=== PATIENT | female | born 1995 | race Caucasian/White ===

== ENCOUNTER 2017-03-02 05:58 | Observation (INO) | payer MEDICAID ==
[~2017-03-02] VITALS: Ht 157.5 cm; Wt 90.7 kg
[2017-03-02] MEDS ORDERED: PNV1TABL76 MT (07:07)
[2017-03-03] MEDS ORDERED: BUPIVACAINE HCL/PF 0.25% (2.5MG/ML) 10ML ONE (00:08)
[2017-03-03] MEDS ORDERED: FENTANYL CITRATE/PF 50MCG/ML 2ML VIAL ONE (00:09)
[2017-03-03] MEDS ORDERED: EPHEDRINE SULFATE 50MG/ML VIAL ONE (00:09)
[2017-03-03] MEDS ORDERED: SODIUM CHLORIDE 0.9% 10ML VIAL ONE (00:09)
[2017-03-03] MEDS ORDERED: LIDOCAINE HCL/PF 1% 10 MG/ML 5ML VIAL ONE (00:15)
== END 2017-03-02 08:40 | disposition home or self-care (01) ==
LOC: L&D 05:58
PROVIDERS: ADMIT Obstetrics & Gynecology; ATTEND Obstetrics & Gynecology
DX: O26.893 Other specified pregnancy related conditions, third trimester (principal); R10.30 Lower abdominal pain, unspecified; O48.0 Post-term pregnancy; Z3A.40 40 weeks gestation of pregnancy
CPT/HCPCS: 99281; A4216; G0378; J0171; J3010; J3490

== ENCOUNTER 2017-03-02 20:08 | Inpatient (IN) | payer MEDICAID ==
[~2017-03-02] VITALS: Ht 162.6 cm; Wt 90.7 kg
[~2017-03-02 20:08] MED LIST: PNV1TABL76 MT
[2017-03-02] MEDS: LACTATED RINGERS 1,000 ML IV SCH (21:15)
[2017-03-02] MEDS ORDERED: CARBOPROST TROMETHAMINE 250 MCG/ML AMPUL IM PRN (22:15)
[2017-03-02] MEDS ORDERED: BUTORPHANOL TARTRATE 2 MG/ML VIAL IV PRN (22:15)
[2017-03-02] MEDS ORDERED: LIDOCAINE HCL 1% 20ML VIAL (Pyxis) INJ INFIL SCH (22:15)
[2017-03-02] MEDS ORDERED: NALOXONE HCL 0.4 MG/ML 1ML VIAL IM PRN (22:15)
[2017-03-02] MEDS ORDERED: METHYLERGONOVINE MALEATE 0.2 MG/ML IM PRN (22:15)
[2017-03-02] MEDS ORDERED: MISOPROSTOL 100MCG TABLET VG SCH (22:15)
[2017-03-02] MEDS ORDERED: PENICILLIN G POTASSIUM 5 MMU in SODIUM CHLORIDE 0.9% 100 ML IV NR (22:30)
[2017-03-02 22:42] LABS: BASOPHILS % 0.1 % (0.0-2.0); EOSINOPHILS % 0.1 % (0.0-5.0); HEMATOCRIT. 36.4 % (36.0-48.0); HEMOGLOBIN. 12.1 g/dL (12.0-16.0); LYMPHOCYTES % 7.9 % (20.0-50.0); MEAN CORPUSCULAR HEMOGLOBIN 29.5 pg (28.0-32.0); MEAN CORPUSCULAR VOLUME 88.9 fL (81.0-99.0); MEAN PLATELET VOLUME 10.5 fl (7.4-10.4); MONOCYTES % 5.2 % (2.0-8.0); NEUTROPHILS % 86.7 % (40.0-76.0); PLATELET 124 x1000/uL (130-400); RED BLOOD CELL COUNT 4.09 mill/uL (4.2-5.4)
[2017-03-02 22:53] LABS: INR 0.9; PARTIAL THROMBOPLASTIN TIME 29.6 sec (23.4-31.0); PROTHROMBIN TIME 9.5 sec (9.4-11.6)
[2017-03-02 23:21] LABS: HEPATITIS B SURFACE ANTIGEN NEGATIVE; RUBELLA IGG 15.4 IU/mL (4.99-10)
[2017-03-03] MEDS ORDERED: CITRIC ACID/SODIUM CITRATE SOLN 30ML UDC PO NR (00:15)
[2017-03-03] MEDS: LACTATED RINGERS 1,000 ML IV SCH ×3 (00:16→07:33)
[2017-03-03] MEDS ORDERED: BUPIVACAINE HCL/NS/PF EPIDURAL 100 ML EP ONE ×3 (01:20→14:26)
[2017-03-03] MEDS: PENICILLIN G POTASSIUM 2.5 MMU in SODIUM CHLORIDE 0.9% 50 ML IV SCH ×4 (02:58→15:08)
[2017-03-03 06:38] LABS: *AMPHETAMINES SCREEN URINE NEGATIVE (NEGATIVE); *BARBITURATES SCREEN URINE NEGATIVE (NEGATIVE); *BENZODIAZEPINES SCREEN URINE NEGATIVE (NEGATIVE); *COCAINE SCREEN URINE NEGATIVE (NEGATIVE); CANNABINOID URINE SCREEN NEGATIVE (NEGATIVE); CLARITY URINE CLOUDY (CLEAR); COLOR URINE DARK YELLOW (YELLOW); KETONES URINE 2+ (NEGATIVE); LEUKOCYTE ESTERASE URINE NEGATIVE (NEGATIVE); METHADONE URINE SCREEN NEGATIVE (NEGATIVE); NITRITE URINE NEGATIVE (NEGATIVE); OCCULT BLOOD URINE 3+ (NEGATIVE); PH URINE 5.5 (4.5-8.0); PHENCYCLIDINE URINE SCREEN NEGATIVE (NEGATIVE); PROTEIN URINE 1+ (NEGATIVE); SPECIFIC GRAVITY URINE 1.026 (1.005-1.030); UROBILINOGEN URINE 0.2 E.U./dL (0.2-1.0)
[2017-03-03 06:57] LABS: OPIATES URINE SCREEN NEGATIVE (NEGATIVE)
[2017-03-03] MEDS ORDERED: FENTANYL CITRATE/PF 50MCG/ML 2ML VIAL ONE ×2 (08:24→14:28)
[2017-03-03] MEDS: DEXT 5%/LR + PITOCIN 20UNITS/L 1,000 ML IV SCH ×2 (13:41→18:15)
[2017-03-03] MEDS ORDERED: BUPIVACAINE HCL/PF 0.25% (2.5MG/ML) 10ML ONE (14:22)
[2017-03-03] MEDS ORDERED: DEXT 5%/LR + PITOCIN 20UNITS/L 1,000 ML IV SCH (18:14)
[2017-03-03] MEDS ORDERED: METHYLERGONOVINE MALEATE 0.2 MG/ML IM PRN (18:15)
[2017-03-03] MEDS ORDERED: IBUPROFEN 400MG TABLET PO PRN (18:15)
[2017-03-03] MEDS ORDERED: RHO(D) IMMUNE GLOBULIN 300 MCG/SYR IM PRN (18:15)
[2017-03-03] MEDS ORDERED: LANOLIN OINT 0.25 GM TUBE TOP PRN (18:15)
[2017-03-03] MEDS: IBUPROFEN 800MG TABLET PO PRN (20:37)
[2017-03-03 21:00] VITALS: BP 123/84
[2017-03-03 22:00] VITALS: BP 121/68
[2017-03-04] VITALS: BP 113/56
[2017-03-04 07:55] LABS: BASOPHILS % 0.3 % (0.0-2.0); EOSINOPHILS % 0.4 % (0.0-5.0); HEMATOCRIT. 25.1 % (36.0-48.0); HEMOGLOBIN. 8.4 g/dL (12.0-16.0); LYMPHOCYTES % 13.8 % (20.0-50.0); MEAN CORPUSCULAR HEMOGLOBIN 29.8 pg (28.0-32.0); MEAN CORPUSCULAR VOLUME 89.3 fL (81.0-99.0); MEAN PLATELET VOLUME 10.5 fl (7.4-10.4); MONOCYTES % 6.1 % (2.0-8.0); NEUTROPHILS % 79.4 % (40.0-76.0); PLATELET 124 x1000/uL (130-400); RED BLOOD CELL COUNT 2.81 mill/uL (4.2-5.4)
[2017-03-04 08:30] VITALS: BP_SYST 59
[2017-03-04] MEDS: PRENATAL VIT/FE FUMARATE/FA TABLET PO SCH (15:13)
[2017-03-04] MEDS: IBUPROFEN 800MG TABLET PO PRN (15:14)
[2017-03-04 17:03] VITALS: BP 127/62
[2017-03-04 18:50] VITALS: BP 120/77
[2017-03-05 08:00] VITALS: BP 119/66
[2017-03-05] MEDS ORDERED: TETANUS, DIPHTHERIA, PERTUSSIS VAC/PF 0.5ML (>7YR OLD) IM ONE (08:00)
[2017-03-05] MEDS: IBUPROFEN 800MG TABLET PO PRN (09:48)
[2017-03-05] MEDS: PRENATAL VIT/FE FUMARATE/FA TABLET PO SCH (09:48)
== END 2017-03-05 18:05 | disposition home or self-care (01) | DRG 560 ==
LOC: L&D 20:08 → OBSVTOIN 20:08 → L&D 03-03 13:11 → 7EST PP/OB 03-03 20:53
PROVIDERS: ADMIT Obstetrics & Gynecology; ATTEND Obstetrics & Gynecology
PROC: 0W8NXZZ Division of Female Perineum, External Approach (ICD-10-PCS; 2017-03-03)
PROC: 3E0R3BZ Introduction of Anesthetic Agent into Spinal Canal, Percutaneous Approach (ICD-10-PCS; 2017-03-03)
PROC: 00HU33Z Insertion of Infusion Device into Spinal Canal, Percutaneous Approach (ICD-10-PCS; 2017-03-03)
PROC: 10E0XZZ Delivery of Products of Conception, External Approach (ICD-10-PCS; principal; 2017-03-03 18:00)
DX: O69.81X0 Labor and delivery complicated by cord around neck, without compression, not applicable or unspecified (principal); D62 Acute posthemorrhagic anemia; O48.0 Post-term pregnancy; O99.02 Anemia complicating childbirth; Z3A.40 40 weeks gestation of pregnancy; Z37.0 Single live birth
CPT/HCPCS: 36415; 80305; 81001; 85025; 85610; 85730; 86592; 86703; 86762; 86850; 86900; 87340; 99281; J0595; J2310; J2540; J2590; J3010; J3490; J7050; J7120

== ENCOUNTER 2017-03-18 10:22 | Emergency (ER) | payer MEDICAID ==
[~2017-03-18] VITALS: Ht 165.1 cm; Wt 62.0 kg
[2017-03-18 13:20] LABS: KETONES URINE NEGATIVE (NEGATIVE); LEUKOCYTE ESTERASE URINE 3+ (NEGATIVE); NITRITE URINE POSITIVE (NEGATIVE); OCCULT BLOOD URINE 3+ (NEGATIVE); PROTEIN URINE 3+ (NEGATIVE); SPECIFIC GRAVITY URINE 1.017 (1.005-1.030); UROBILINOGEN URINE 0.2 E.U./dL (0.2-1.0)
[2017-03-18 13:31] LABS: CLARITY URINE TURBID (CLEAR); COLOR URINE YELLOW (YELLOW)
[2017-03-18 14:11] VITALS: BP 122/60
== END 2017-03-18 13:52 | disposition home or self-care (01) ==
LOC: ER 10:22
DX: N39.0 Urinary tract infection, site not specified (principal)
CPT/HCPCS: 81001; 81025; 87077; 87086; 87186; 99284